=== PATIENT | male | born 1980 | race Caucasian/White ===

== ENCOUNTER 2022-01-20 13:37 | Emergency (ER) | payer BC, SELFPAY ==
[2022-01-20 13:46] VITALS: BP 157/110; PULSE 113; RESP 16; TEMP 36.1; O2SAT 100
--- NOTE | 2022-01-20 14:36 | ED.NAVMDI ---
HPI - Nausea/Vomiting/Diarrhea General Chief complaint: Nausea/Vomiting/Diarrhea Stated complaint: Vomiting/Fever Time Seen by Provider: 01/20/22 14:36 Source: patient and RN notes reviewed Mode of arrival: ambulatory Limitations: no limitations History of Present Illness HPI Narrative: 41-year-old male presented for complaints of headache, body aches, sinus pressure/congestion, cough, fever/chills. onset 3 days. Endorses episode of vomiting today. He has had 2 negative COVID tests at home. He denies shortness of breath or wheezing. Smokes 1/2PPD. Related Data Home Medications Medication Instructions Recorded Confirmed citalopram 20 mg tablet 20 mg PO DAILY 01/20/22 01/20/22 citalopram 40 mg tablet 40 mg PO DAILY 01/20/22 01/20/22 gabapentin 300 mg capsule 300 mg PO TID 01/20/22 01/20/22 hydrochlorothiazide 25 mg tablet 25 mg PO DAILY 01/20/22 01/20/22 lisinopril 40 mg tablet 40 mg PO DAILY 01/20/22 01/20/22 naltrexone microspheres 380 mg 380 mg IM [id number] 01/20/22 01/20/22 intramuscular suspension,extended release (Vivitrol) Allergies Allergy/AdvReac Type Severity Reaction Status Date / Time diphenhydramine Allergy Intermediate tactile Verified 01/20/22 14:09 hallucinations tranexamic acid Allergy Intermediate tactile Verified 01/20/22 14:09 hallucinations topiramate Allergy Mild red man's Verified 01/20/22 14:09 syndrome vancomycin Allergy Mild red man's Verified 01/20/22 14:09 syndrome Review of Systems Review of Systems: ROS per HPI Exam Narrative: GENERAL: Ill-appearing, nontoxic EYES: PERRLA, conjunctivae clear ENT: Mucous membranes moist. TMs pearly negrete with dull light reflex bilaterally; no tragal tenderness. Oropharynx erythematous without lesions or exudate, no drooling, no hoarseness, no trismus, uvula midline. CHEST: Clear to auscultation, breath sounds equal. No wheezing, rhonchi, rales, or stridor. No respiratory distress, speaks in full sentences. HEART: Regular rate and rhythm. No murmur heard. SKIN: Warm, dry, no rash. NEURO: Alert and oriented x3. PSYCH: Normal mood and affect Course Course Emergency Course: Patient is aware of diagnosis, understands and agrees to treatment plan. Anticipatory guidance given. Patient agrees to follow-up as directed and is aware of reasons to seek care at the emergency department. Portions of this record may have been created with voice recognition software Level of Care: Express Care Visit Vital Signs Vital signs: Vital Signs Temperature 96.9 F L 01/20/22 13:46 Pulse Rate 113 H 01/20/22 13:46 Respiratory Rate 16 01/20/22 13:46 Blood Pressure 157/110 H 01/20/22 13:46 Pulse Oximetry 100 01/20/22 13:46 Oxygen Delivery Room Air 01/20/22 13:46 Temperature 96.9 F L 01/20/22 13:46 Pulse Rate 113 H 01/20/22 13:46 Respiratory Rate 16 01/20/22 13:46 Blood Pressure 157/110 H 01/20/22 13:46 Pulse Oximetry 100 01/20/22 13:46 Oxygen Delivery Room Air 01/20/22 13:46 reviewed MDM - Nausea/Vomiting/Diarrhea MDM Narrative Medical decision making narrative: Influenza positive. Results reviewed with patient. Advised supportive measures and signs/symptoms to go to the ER. Pt is appropriate for outpt treatment and f/u. Differential Diagnosis Differential diagnosis: Likely gastroenteritis and other (influenza, viral infection) Lab Data Labs: Influenza A Screen Positive Reference Range: Negative Influenza B Screen Negative Reference Range: Negative Discharge Plan Discharge Clinical Impression: Influenza Patient Disposition: Home, Self-Care Condition: Stable Instructions: Influenza (ED) Additional Instructions: Influenza positive You should avoid crowds until you are fever free for 24 hours without the use of fever reducing medicati
== END 2022-01-20 14:45 | disposition home or self-care (01) ==
PROVIDERS: Emergency Provider Nurse Practitioner Family
DX: J11.1 Influenza due to unidentified influenza virus with other respiratory manifestations (principal)
CPT/HCPCS: 87804; 99203; G0463